=== PATIENT | female | born 1950 | race Caucasian/White ===

== ENCOUNTER 2023-03-11 07:02 | Inpatient (IN) ==
[2023-03-11] MEDS ORDERED: dexAMETHasone**PF** 10 MG/ML VIAL IV ONE (07:07)
[2023-03-11] MEDS ORDERED: ALBUT/IPRATROP 3MG/0.5MG NEB 3 ML VIAL NEB STA (07:07)
[2023-03-11] MEDS ORDERED: MAGNESIUM SULFATE / D5W 1 GM/100 ML BAG IV STA (07:08)
--- OUTSIDE RECORDS SUMMARY | 2023-03-11 07:09 | External Medical Summary ---
Author Name Unknown Address Unknown Organization [facility]:[address] [place] [address] Laboratory Report Ordering Provider Test Date Status LEANN SIMMONS 12/28/2022 10:05 Final Observation Date Value Abnormality Reference (Units ) Status Glucose 12/28/2022 16:19 82 70-110 (MG/DL) Final BUN 12/28/2022 16:19 17 6-25 (MG/DL) Final Creatinine 12/28/2022 16:19 0.8 0.5-1.2 (MG/DL) Final Sodium 12/28/2022 16:19 144 135-145 (MEQ/L) Final Potassium 12/28/2022 16:19 4.2 3.5-5.0 (MEQ/L) Final Cl 12/28/2022 16:19 104 95-107 (MEQ/L) Final CO2 12/28/2022 16:19 32 Above high normal 24-31 (MEQ/L) Final Alk Phos 12/28/2022 16:19 82 43-122 (IU/L) Final ALT (Alanine aminotransferase) 12/28/2022 16:19 13 10-40 (IU/L) Final AST (Aspartate aminotransferase) 12/28/2022 16:19 17 3-42 (IU/L) Final Bilirubin, Total 12/28/2022 16:19 0.4 0.1-1.3 (MG/DL) Final Calcium 12/28/2022 16:19 9.9 8.5-10.6 (MG/DL) Final Protein 12/28/2022 16:19 6.6 5.8-8.0 (G/DL) Final Albumin 12/28/2022 16:19 4.2 3.0-5.2 (G/DL) Final GLOBULIN 12/28/2022 16:19 2.4 2.0-3.4 (G/DL) Final GFR (estimated) 12/28/2022 16:19 75 >60 (ML/MIN/1.73 SQM) Final Performing Location [facility] [address] [place] [address]
--- OUTSIDE RECORDS SUMMARY | 2023-03-11 07:09 | External Medical Summary ---
Author Name Unknown Address Unknown Organization [facility]:[address] [place] [address] Laboratory Report Ordering Provider Test Date Status LEANN SIMMONS 12/28/2022 10:05 Final Observation Date Value Abnormality Reference (Units ) Status Cholesterol 12/28/2022 16:19 185 0-200 (MG/D L) Final CHOLESTEROL
Less than 2 00mg/dl Low risk
201-239 mg/dl Borderline risk
Equal to or greater 240mg/dl High risk Triglyceride 12/28/2022 16:19 116 0-150 (MG/ DL) Final TRIGLYCERIDES
Less than 150mg/dl Normal
150-199mg/dl Borderline
200-499mg/dl High
Greater than 500mg/dl Very High HDL 12/28/2022 16:19 62 SEE COMMENT ( MG/DL) Final HDL
<40mg/dl Elevated R isk
41-59mg/dl Risk
>=60mg/dl Least Risk Cholesterol in LDL [Mass/vol ume] in Serum or Plasma 12/28/2022 16:19 114 0-130 (MG/DL) Final LDL
<100mg/dl Optimal<b r/> 100-129mg/dl Near Optimal
130-159mg/dl Borderline High
160-189mg/dl High
>=190 Very High Cholesterol in VLDL [Mass/vo lume] in Serum or Plasma 12/28/2022 16:19 23.2 SEE COMMENT (MG/DL ) Final VLDL
Less than 30mg/dl Normal HDL 12/28/2022 16:19 3.0 SEE COMMENT ( RATIO) Final CHOL/HDL
<4.0 Optimal<b r/> 4.0-5.0 Borderline
>6.0 High Risk NON-HDL 12/28/2022 16:19 123 SEE COMMENT ( MG/DL) Final NON-HDL
30mg/dl higher than LDL Target Performing Location [facility] [address] [place] [address]
--- OUTSIDE RECORDS SUMMARY | 2023-03-11 07:09 | External Medical Summary ---
Author Name Unknown Address Unknown Organization K1C:[facility] [address] [place] [id number] Laboratory Report Ordering Provider Test Date Status BRENDA SIMMONSO 12/28/2022 10:05 Final Observation Date Value Abnormality Reference (Units ) Status TSH 12/28/2022 16:02 1.71 0.50-6.00 (uI U/mL) Final Performing Location [facility] [address] [place] [id number]
--- OUTSIDE RECORDS SUMMARY | 2023-03-11 07:09 | External Medical Summary ---
Author Name Unknown Address Unknown Organization [facility]:[address] [place] [address] Laboratory Report Ordering Provider Test Date Status LEANN SIMMONS 12/28/2022 10:05 Final Observation Date Value Abnormality Reference (Units ) Status WBC 12/28/2022 15:10 6.2 3.1-9.2 (10^3 /M3) Final RBC 12/28/2022 15:10 4.59 3.70-5.50 (10 ^6/M3) Final Hemoglobin 12/28/2022 15:10 14.1 11.5-16.1 (G R/DL) Final HCT 12/28/2022 15:10 42.8 34.5-47.8 (%) Final MCV 12/28/2022 15:10 93.4 82.6-95.8 (CU MICR) Final MCH 12/28/2022 15:10 30.8 27.9-32.9 (PI CO GR) Final MCHC 12/28/2022 15:10 33.0 32.6-35.4 (%) Final RDW 12/28/2022 15:10 13.3 11.4-14.6 (%) Final PLT 12/28/2022 15:10 236 140-350 (10^3 /M3) Final MPV 12/28/2022 15:10 8.4 7.0-10.6 (CU MICR) Final Neutrophils/100 leukocytes in Blood 12/28/2022 15:10 59.9 40.0-75.0 (%) Fin al Lymphs % 12/28/2022 15:10 27.0 17.0-45.0 (%) Final Monos 12/28/2022 15:10 8.1 1.0-11.0 (%) Final %EOS 12/28/2022 15:10 4.5 0.0-6.0 (%) F inal Basos 12/28/2022 15:10 0.5 0.0-2.0 (%) F inal Neutrophils [#/volume] in [place] by Manual count 12/28/2022 15:10 3.7 1.5-8.0 (10^ 3/M3) Final Lymphs % 12/28/2022 15:10 1.7 0.8-3.2 (10^3 /M3) Final Monos 12/28/2022 15:10 0.5 0.0-0.8 (10^3 /M3) Final #EOS 12/28/2022 15:10 0.3 0.0-0.4 (10^3 /m3) Final #BASO 12/28/2022 15:10 0.0 0.0-0.2 (10^3 /m3) Final Performing Location [facility] [address] [place] [address]
--- OUTSIDE RECORDS SUMMARY | 2023-03-11 07:09 | External Medical Summary ---
Author Name Unknown Address Unknown Organization K1C:[facility] [address] [place] [id number] Laboratory Report Ordering Provider Test Date Status null,[facility] 11/03/2022 12:34 Final Observation Date Value Abnormality Reference (Units ) Status Creatinine 11/04/2022 13:04 1.1 0.5-1.2 (MG/ DL) Final GFR (estimated) 11/04/2022 13:04 52 Below low normal >60 (ML/MIN/1.73 SQM) Final Performing Location [facility] [address] [place] [id number]
--- NOTE | 2023-03-11 07:12 | Emergency Department Note ---
Impression & Plan COPD exacerbation, Tachycardia, Elevated troponin, COVID-19 ED Provider Note Name: BRITT ARREOLA Age: 73 Sex: Female Arrives Via: Ambulance Informant: Patient and EMS ED Provider: Merrill Rubio MD Chief Complaint: Shortness of breath Impression: As per impression above Medical Decision Makin-year-old female with extensive past medical history though not on medications currently as she is homeless having just moved back to the area. Worsening illness over the last 2 weeks though significantly worse over the last day. Patient is significantly short of breath she has diffuse wheezing and tight lung sounds. She is quite tachycardic she is quite dehydrated appearing. Septic workup initiated. Shortly after arrival patient flipped to an SVT. Heart rate in the 180s. She was given adenosine with return to heart rate in the 130s and 40s. Fluid resuscitated while here in the ER and had a few episodes of tachyarrhythmia that would bounce back down. Did end up receiving 2 rounds of IV Lopressor and eventually heart rate settled in the 90s and was very much sinus. At times it almost appeared that patient was going between SVT, a flutter and unclear arrhythmia though does not have any evidence of wide-complex tachycardia. Chest x-ray does not show clear infiltrate. Laboratory workup is relatively reassuring other than she does have an elevated troponin. At this point I do not feel she is truly septic. She had been given some empiric IV antibiotics in the setting of tachycardia shortness of breath however with COVID, back positive I feel its most likely this is a COPD exacerbation secondary to COVID which also set off a tachyarrhythmia. This is likely the cause of a bit of a troponin leak. She is not having any chest pain or hypotension I think PE or ACS is unlikely at this time. Will need further rule out of troponin but more importantly her breathing cardiac will need further workup and evaluation/management. Patient is comfortable with staying in the hospital. Hospitalist and to evaluate further. I will note that initially plan was to give a DuoNeb however she became so tachycardic plan was to hold off and resuscitate a bit while getting heart rate under control before proceeding with neb. Reviewed this with hospitalist who is on board. Triage/Nursing Notes reviewed by Me Differential:Reactive airway disease, pneumonia, pneumothorax, COPD, CHF, infections, cardiac ischemia, pulmonary embolism, musculoskeletal, gastrointestinal, as well as other pathologies. Vital Signs: reviewed and remarkable for no significant abnormalities Interventions: 2 L normal saline bolus IV, Zosyn IV, Decadron IV, adenosine 6 mg IV, Lopressor 5 mg IV x 2 Labs:ED labs Reviewed by me and remarkable for positive COVID, elevated troponin, mildly elevated white blood cell count, elevated CRP Imagin view chest x-ray bilateral mild viral pattern no lobar infiltrate appreciated EKG:As per my interpretation. Indication tachycardia. Sinus tach 133 bpm, qtc 422. No ectopy nor overt ischemia. No previous for comparison EKG 2: Per My Interpretation: Indication rate change: SVT 183 bpm, qtc 425. No Ectopy. No Ischemia. Compared to EKG earlier in day, now in SVT Cardiac/Tele Monitoring: Cardiac Monitoring: An Order was placed for continuous cardiac monitoring. The monitor shows a rate of 130 with a sinus tach rhythm. Consults:Dr Matilde ANTONIO Hospitalist Social Determinants of Health: Homeless Plan: Disposition:Hospitalization. Condition: Fair History of Present Illness: 73-year-old female arrives for evaluation of illness. Patient states for the last 2 weeks gradually worsening cough congestion fatigue. States rapidly worsening shortness of breath over the last few days. This morning she said she just could not catch her breath anymore. Associated with wheezing fatigue tachycardia. States she almost passed out. Notes diffuse chest tightness without specific chest pain. No leg swelling, calf pain. Admits she has not been eating or drinking as well. Currently living at a homeless [facility] as she recently moved to the area to avoid further family interactions in [facility]. Patient denies alcohol, drug, tobacco use at this time. Denies any inhalation of anything other than her medications. She was on several breathing treatment medicines though as she does not currently have a doctor she is run out of some of them. Due to worsening shortness of breath EMS was called. On arrival EMS noted patient with O2 sats in the 80s severe shortness of breath and tachycardic. She was given 500 mL IV normal saline bolus and route. She was given adenosine 6 mg IV with heart rate going from 160s to 110s then back up to 140s. Past Medical History:COPD, asthma, hypertension, bladder cancer, arthritis, previous left sided breast lumpectomy Home Medications:notes multiple breathing meds that she is run out of Allergies:denies allergies Vitals:Blood Pressure: 142/77, Pulse 148, RR 22, T 37.0C, O2 86% on RA Physical Exam: GENERAL: Patient is unwell appearing and in moderate distress. RESPIRATORY: Severe dyspnea/tachypnea. Mild expiratory wheeze and some crackles at bases. CARDIOVASCULAR: Tachycardia.No murmur appreciated. GASTROINTESTINAL: Abdomen soft, non-tender, no peritonitis. EXTREMITIES: Normal motion all extremities, no cyanosis, no edema. NEUROLOGIC: Alert and oriented. No focal neurologic deficits appreciated SKIN: No rash, no jaundice, no diaphoresis. PSYCH: Appropriate GCS: 15 ED Course: Times/Reassessments: Patient flipping in and out of SVT & a-fib/flutter eventually settling in the upper 90s sinus following fluids Lopressor. Critical Care: I have personally spent 35 minutes of critical care time in the direct management of this patient. Tachyarrhythmia requiring adenosine & lopressor with respiratory failure due to COPD and Covid. This was a life/limb threatening event. This 35 minutes is in excess of all separately billable procedures. Merrill Rubio MD Past Med/Surg History Surgical History (Updated 06/14/21 @ 14:08 by JULIO Malhotra) History of thumb surgery H/O wrist surgery History of hysterectomy Hx of appendectomy Family History (Updated 06/14/21 @ 14:09 by JULIO Malhotra) Mother Cancer Father Cancer Sister Cancer Brother Cancer Social History (Updated 06/14/21 @ 14:09 by JULIO Malhotra) Smoking Status: Former smoker Hx Alcohol Use: No Hx Substance Use: No Preferred Language: Honduran marital status: / current occupational status: disabled Feels Safe at Home: Yes Allergies Allergies Allergy/AdvReac Type Severity Reaction Status Date / Time Penicillins Allergy Unknown was always Unverified 03/11/23 09:23 told not to take it acetaminophen [From Vicodin] AdvReac Intermediate severe Unverified 03/11/23 09:23 stomach pains hydrocodone [From Vicodin] AdvReac Intermediate severe Unverified 03/11/23 09:23 stomach pains ptd Allergy Mild Rash Uncoded 03/11/23 09:23 Home Meds Home Medications Medication Instructions Recorded Confirmed bupropion HCl 300 mg 24 hr tablet, 300 mg PO DAILY 03/11/23 03/11/23 extended release buspirone 15 mg tablet 15 mg PO TID 03/11/23 03/11/23 duloxetine 60 mg capsule,delayed 60 mg PO DAILY 03/11/23 03/11/23 release esomeprazole magnesium 40 mg 40 mg PO DAILY 03/11/23 03/11/23 capsule,delayed release gabapentin 400 mg capsule 400 mg PO TID 03/11/23 03/11/23 hydrochlorothiazide 12.5 mg capsule 12.5 mg PO DAILY 03/11/23 03/11/23 lithium carbonate 300 mg capsule 300 mg PO DAILY 03/11/23 03/11/23 meloxicam 15 mg tablet 15 mg PO DAILY 03/11/23 03/11/23 metoprolol succinate 50 mg 50 mg PO DAILY 03/11/23 03/11/23 tablet,extended release 24 hr oxybutynin chloride 5 mg tablet 5 mg PO BID 03/11/23 03/11/23 pantoprazole 40 mg tablet,delayed 40 mg PO DAILY 03/11/23 03/11/23 release ropinirole 1 mg tablet 1 mg PO DAILY 03/11/23 03/11/23 umeclidinium 62.5 mcg/actuation See Rx Instructions .Route .COMPLEX 03/11/23 03/11/23 blister powder for inhalation (Incruse Ellipta) Results & Data (ED) Vital Signs Vital Signs - 24 hr 03/11/23 07:17 03/11/23 07:17 03/11/23 07:40 Temperature 37.4 C Temperature Source Oral Pulse Rate 140 H 183 H Pulse Rate from SpO2 Sensor Respiratory Rate 19 Blood Pressure 142/77 H Blood Pressure Mean 98 Pulse Oximetry 84 L 85 L Oxygen Delivery Method Room Air Nasal Cannula Oxygen Flow Rate 0 Sepsis Recent Fever Within 48 Hours No Sepsis New/Unexplained Change in Mental Status No Sepsis Action Taken by Nursing No Action Required Oxygen Flow Rate - Titration 2 Pulse Oximetry Post Tiitration 97 03/11/23 07:43 03/11/23 07:44 03/11/23 07:44 Temperature Temperature Source Pulse Rate 182 H 181 H Pulse Rate from SpO2 Sensor 183 H 181 H Respiratory Rate 15 14 Blood Pressure 93/75 L Blood Pressure Mean 82 Pulse Oximetry 97 98 Oxygen Delivery Method Nasal Cannula Nasal Cannula Oxygen Flow Rate 2 2 Sepsis Recent Fever Within 48 Hours Sepsis New/Unexplained Change in Mental Status Sepsis Action Taken by Nursing Oxygen Flow Rate - Titration Pulse Oximetry Post Tiitration 03/11/23 07:45 03/11/23 07:50 03/11/23 07:55 Temperature Temperature Source Pulse Rate 180 H 128 H Pulse Rate from SpO2 Sensor 178 H 127 H Respiratory Rate 15 18 Blood Pressure 116/64 Blood Pressure Mean 81 Pulse Oximetry 97 95 Oxygen Delivery Method Nasal Cannula Nasal Cannula Oxygen Flow Rate 2 2 Sepsis Recent Fever Within 48 Hours Sepsis New/Unexplained Change in Mental Status Sepsis Action Taken by Nursing Oxygen Flow Rate - Titration Pulse Oximetry Post Tiitration 03/11/23 07:55 03/11/23 08:00 03/11/23 08:00 Temperature Temperature Source Pulse Rate 123 H 123 H Pulse Rate from SpO2 Sensor 124 H 122 H Respiratory Rate 14 18 Blood Pressure 119/49 L Blood Pressure Mean 78 Pulse Oximetry 94 94 Oxygen Delivery Method Nasal Cannula Nasal Cannula Oxygen Flow Rate 2 2 Sepsis Recent Fever Within 48 Hours Sepsis New/Unexplained Change in Mental Status Sepsis Action Taken by Nursing Oxygen Flow Rate - Titration Pulse Oximetry Post Tiitration 03/11/23 08:05 03/11/23 08:10 03/11/23 08:15 Temperature Temperature Source Pulse Rate 124 H 124 H 120 H Pulse Rate from SpO2 Sensor 126 H 119 H Respiratory Rate 26 H 49 H 21 Blood Pressure Blood Pressure Mean Pulse Oximetry 97 93 Oxygen Delivery Method Oxygen Flow Rate Sepsis Recent Fever Within 48 Hours Sepsis New/Unexplained Change in Mental Status Sepsis Action Taken by Nursing Oxygen Flow Rate - Titration Pulse Oximetry Post Tiitration 03/11/23 08:20 03/11/23 08:22 03/11/23 08:25 Temperature Temperature Source Pulse Rate 120 H 121 H 120 H Pulse Rate from SpO2 Sensor 118 H 119 H Respiratory Rate 34 H 26 H Blood Pressure Blood Pressure Mean Pulse Oximetry 94 94 Oxygen Delivery Method Oxygen Flow Rate 2 2 Sepsis Recent Fever Within 48 Hours Sepsis New/Unexplained Change in Mental Status Sepsis Action Taken by Nursing Oxygen Flow Rate - Titration Pulse Oximetry Post Tiitration 03/11/23 08:30 03/11/23 08:30 03/11/23 08:35 Temperature Temperature Source Pulse Rate 129 H 121 H Pulse Rate from SpO2 Sensor 119 H 121 H Respiratory Rate 22 26 H Blood Pressure 117/68 Blood Pressure Mean 76 Pulse Oximetry 93 94 Oxygen Delivery Method Oxygen Flow Rate 2 2 Sepsis Recent Fever Within 48 Hours Sepsis New/Unexplained Change in Mental Status Sepsis Action Taken by Nursing Oxygen Flow Rate - Titration Pulse Oximetry Post Tiitration 03/11/23 08:40 03/11/23 08:40 03/11/23 08:43 Temperature Temperature Source Pulse Rate 179 H 192 H 129 H Pulse Rate from SpO2 Sensor 189 H Respiratory Rate 26 H Blood Pressure Blood Pressure Mean Pulse Oximetry 92 Oxygen Delivery Method Nasal Cannula Oxygen Flow Rate 2 Sepsis Recent Fever Within 48 Hours Sepsis New/Unexplained Change in Mental Status Sepsis Action Taken by Nursing Oxygen Flow Rate - Titration Pulse Oximetry Post Tiitration 03/11/23 08:45 03/11/23 08:50 03/11/23 08:55 Temperature Temperature Source Pulse Rate 121 H 121 H 123 H Pulse Rate from SpO2 Sensor 121 H 122 H 123 H Respiratory Rate 23 30 H 22 Blood Pressure Blood Pressure Mean Pulse Oximetry 93 92 94 Oxygen Delivery Method Nasal Cannula Oxygen Flow Rate 2 Sepsis Recent Fever Within 48 Hours Sepsis New/Unexplained Change in Mental Status Sepsis Action Taken by Nursing Oxygen Flow Rate - Titration Pulse Oximetry Post Tiitration 03/11/23 09:00 03/11/23 09:00 03/11/23 09:05 Temperature Temperature Source Pulse Rate 174 H 133 H Pulse Rate from SpO2 Sensor 174 H 132 H Respiratory Rate 20 29 H Blood Pressure 129/76 Blood Pressure Mean 84 Pulse Oximetry 95 91 Oxygen Delivery Method Oxygen Flow Rate Sepsis Recent Fever Within 48 Hours Sepsis New/Unexplained Change in Mental Status Sepsis Action Taken by Nursing Oxygen Flow Rate - Titration Pulse Oximetry Post Tiitration 03/11/23 09:15 03/11/23 09:20 03/11/23 09:25 Temperature Temperature Source Pulse Rate 153 H 152 H 150 H Pulse Rate from SpO2 Sensor 158 H 151 H 150 H Respiratory Rate 27 H 23 23 Blood Pressure Blood Pressure Mean Pulse Oximetry 93 93 94 Oxygen Delivery Method Oxygen Flow Rate Sepsis Recent Fever Within 48 Hours Sepsis New/Unexplained Change in Mental Status Sepsis Action Taken by Nursing Oxygen Flow Rate - Titration Pulse Oximetry Post Tiitration 03/11/23 09:30 03/11/23 09:30 03/11/23 09:35 Temperature Temperature Source Pulse Rate 154 H 102 H Pulse Rate from SpO2 Sensor 152 H 102 H Respiratory Rate 29 H 23 Blood Pressure 110/87 Blood Pressure Mean 98 Pulse Oximetry 93 93 Oxygen Delivery Method Oxygen Flow Rate 2 Sepsis Recent Fever Within 48 Hours Sepsis New/Unexplained Change in Mental Status Sepsis Action Taken by Nursing Oxygen Flow Rate - Titration Pulse Oximetry Post Tiitration 03/11/23 09:40 03/11/23 09:45 03/11/23 09:50 Temperature Temperature Source Pulse Rate 146 H 104 H 106 H Pulse Rate from SpO2 Sensor 147 H 103 H 101 H Respiratory Rate 35 H 28 H 35 H Blood Pressure Blood Pressure Mean Pulse Oximetry 92 90 93 Oxygen Delivery Method Oxygen Flow Rate 2 2 2 Sepsis Recent Fever Within 48 Hours Sepsis New/Unexplained Change in Mental Status Sepsis Action Taken by Nursing Oxygen Flow Rate - Titration Pulse Oximetry Post Tiitration 03/11/23 09:55 03/11/23 10:00 03/11/23 10:00 Temperature Temperature Source Pulse Rate 116 H 94 H Pulse Rate from SpO2 Sensor 98 H 99 H Respiratory Rate 28 H 18 Blood Pressure 95/72 L Blood Pressure Mean 76 Pulse Oximetry 94 95 Oxygen Delivery Method Oxygen Flow Rate 2 2 Sepsis Recent Fever Within 48 Hours Sepsis New/Unexplained Change in Mental Status Sepsis Action Taken by Nursing Oxygen Flow Rate - Titration Pulse Oximetry Post Tiitration 03/11/23 10:05 03/11/23 10:10 03/11/23 10:21 Temperature Temperature Source Pulse Rate 100 H 102 H 106 H Pulse Rate from SpO2 Sensor 99 H 102 H Respiratory Rate 27 H 26 H 22 Blood Pressure Blood Pressure Mean Pulse Oximetry 92 91 Oxygen Delivery Method Oxygen Flow Rate 2 2 Sepsis Recent Fever Within 48 Hours Sepsis New/Unexplained Change in Mental Status Sepsis Action Taken by Nursing Oxygen Flow Rate - Titration Pulse Oximetry Post Tiitration Laboratory Data 03/11/23 07:39 03/11/23 07:39 Lab Results 03/11/23 03/11/23 03/11/23 Range/Units 07:39 07:55 09:15 WBC 15.42 H (4.8-10.8) K/ul RBC 4.19 L (4.20-5.40) M/uL Hgb 12.4 (12.0-16.0) g/dl Hct 38.9 (37.0-47.0) % MCV 92.8 (80.0-100.0) fL MCH 29.6 (25.0-34.0) pg MCHC 31.9 L (32.0-36.0) g/dL RDW Std Deviation 43.8 (36.4-46.3) fL RDW Coeff of Manny 12.9 (11.5-14.5) % Plt Count 269 (130-400) K/uL MPV 10.0 (9.4-12.4) fL Immature Gran % (Auto) 1.2 % Neut % (Auto) 83.5 % Lymph % (Auto) 5.1 % [place] % (Auto) 9.4 % Eos % (Auto) 0.5 % Baso % (Auto) 0.3 % Neut # (Auto) 12.87 H (1.40-6.50) K/uL Lymph # (Auto) 0.79 L (1.20-3.40) K/uL [place] # (Auto) 1.45 H (0.11-0.59) K/uL Eos # (Auto) 0.08 (0.00-0.50) K/uL Baso # (Auto) 0.05 (0.00-0.20) K/uL Immature Gran # (Auto) 0.18 (0.01-0.20) K/uL VBG pH 7.37 (7.36-7.41) VBG pCO2 46 (38-50) mmHg VBG pO2 46 mmHg VBG HCO3 27 mmol/L VBG O2 Saturation 76.5 % VBG Base Excess 0.8 mEq/L Sodium 138 (136-145) mmol/L Potassium 3.8 (3.5-5.1) mmol/L Chloride 103 (98-107) mmol/L Carbon Dioxide 27 (21-32) mmol/L Anion Gap 8 (3-11) BUN 14 (6-23) mg/dl Creatinine 0.66 (0.6-1.2) mg/dl Est Cr Clr Drug Dosing 73.4 ml/min Est GFR ( Amer) 103.0 ml/min Est GFR (Non-Af Amer) 88.9 ml/min BUN/Creatinine Ratio 21.2 H (10-20) Glucose 137 H (70-99(Fasting)) mg/dl Lactate 1.2 (0.4-2.0) mmol/L Calcium 8.1 L (8.6-10.3) mg/dl Magnesium 1.7 (1.7-2.4) mg/dl Total Bilirubin 0.5 (0.2-1.0) mg/dl Direct Bilirubin 0.1 (0-0.2) mg/dl AST 23 (13-39) U/L ALT 18 (7-52) U/L Alkaline Phosphatase 81 (34-104) U/L Troponin I High Sens 46.0 H (0-14) pg/ml C-Reactive Protein 21.84 H (0-0.5) mg/dl Total Protein 6.2 (6.0-8.3) gm/dl Albumin 3.0 L (3.4-5.0) gm/dl Procalcitonin 0.26 (0-0.5) ng/ml Urine Color Yellow Urine Appearance Clear (Clear) Urine pH 6.0 (4.5-7.5) Ur Specific [place] 1.007 (1.000-1.030) Urine Protein 1+ H (Negative) Urine Glucose (UA) Negative (Negative) Urine Ketones Trace H (Negative) Urine Blood Trace H (Negative) Urine Nitrite Negative (Negative) Urine Bilirubin Negative (Negative) Urine Urobilinogen Negative (Negative) Ur Leukocyte Esterase Negative (Negative) Urine WBC (Auto) 1-5 (0-5) /hpf Urine RBC (Auto) 0-4 (0-4) /hpf U Hyaline Cast (Auto) 1-5 (0-5) /lpf U Epithel Cells (Auto) >30 H (0-5) /lpf Urine Bacteria (Auto) 1+ H (Negative) Adenovirus (PCR) Not Detected (NotDetected) B. pertussis DNA (PCR) Not Detected (NotDetected) B.parapertussis DNA PCR Not Detected (NotDetected) C. pneumoniae DNA (PCR) Not Detected (NotDetected) Coronavirus OC43 (PCR) Not Detected (NotDetected) Coronavirus HKU1 (PCR) Not Detected (NotDetected) Coronavirus 229E (PCR) Not Detected (NotDetected) SARS-CoV-2 (PCR) DETECTED A* (NotDetected) Coronavirus NL63 (PCR) Not Detected (NotDetected) Human Metapneumovir PCR Not Detected (NotDetected) Influenza Type A (PCR) Not Detected (NotDetected) Influenza Type B (PCR) Not Detected (NotDetected) M. pneumoniae (PCR) Not Detected (NotDetected) Parainfluenza 1 (PCR) Not Detected (NotDetected) Parainfluenza 2 (PCR) Not Detected (NotDetected) Parainfluenza 3 (PCR) Not Detected (NotDetected) Parainfluenza 4 (PCR) Not Detected (NotDetected) RSV (PCR) Not Detected (NotDetected) Entero/Rhino (PCR) Not Detected (NotDetected) Administered Medications Lactated Ringer's (Lr) 1,000 mls @ 80 mls/hr IV .[id number] [facility] Stop: 04/10/23 12:57 Last Admin: 03/11/23 13:45 Dose: 80 mls/hr Documented By: ANGELIQUE Discontinued Medications Adenosine (Adenosine Iv Soln 3 Mg/Ml 2 Ml Vial) 6 mg IV NOW STA Stop: 03/11/23 07:42 Last Admin: 03/11/23 07:47 Dose: 6 mg Documented By: ANGELIQUE Adenosine (Adenosine Iv Soln 3 Mg/Ml 2 Ml Vial) 6 mg IV NOW STA Stop: 03/11/23 08:40 Last Admin: 03/11/23 11:09 Dose: Not Given Documented By: ANGELIQUE Albuterol (Albut/Ipratrop 3mg/0.5mg Neb 3 Ml Vial) 3 ml NEB NOW STA; Protocol Stop: 03/11/23 07:08 Last Admin: 03/11/23 09:15 Dose: Not Given Documented By: ANGELIQUE Dexamethasone Sodium Phosphate (DexamethasonePf 10 Mg/Ml Vial) 10 mg IV NOW ONE Stop: 03/11/23 07:08 Last Admin: 03/11/23 07:51 Dose: 10 mg Documented By: ANGELIQUE Sodium Chloride (Nss) 1,000 mls @ 999 mls/hr IV .Q1H1M BETH Stop: 03/11/23 08:15 Last Infusion: 03/11/23 08:45 Dose: Infused Documented By: Admin: 03/11/23 07:44 Dose: 999 mls/hr Documented By: ANGELIQUE Magnesium Sulfate/Dextrose (Magnesium Sulfate / D5w) 1 gm in 100 mls @ 100 mls/hr IV NOW STA Stop: 03/11/23 08:07 Last Infusion: 03/11/23 08:54 Dose: Infused Documented By: Admin: 03/11/23 07:54 Dose: 100 mls/hr Documented By: ANGELIQUE Sodium Chloride (Nss) 1,000 mls @ 999 mls/hr IV .Q1H1M ONE Stop: 03/11/23 08:41 Last Infusion: 03/11/23 08:52 Dose: Infused Documented By: Admin: 03/11/23 07:51 Dose: 999 mls/hr Documented By: ANGELIQUE Piperacillin Sod/Tazobactam Sod (Zosyn) 4.5 gm in 100 mls @ 200 mls/hr IV NOW ONE Stop: 03/11/23 08:37 Last Infusion: 03/11/23 09:43 Dose: Infused Documented By: Admin: 03/11/23 09:13 Dose: 200 mls/hr Documented By: ANGELIQUE Ipratropium [place] (Ipratropium [place] Neb Soln 0.02% 2.5 Ml Vial) 0.5 mg NEB QID BETH Stop: 04/10/23 12:59 Last Admin: 03/11/23 13:07 Dose: Not Given Documented By: FILIPE Metoprolol Tartrate (Metoprolol Tartrate 1 Mg/Ml Vial) 5 mg IV NOW STA Stop: 03/11/23 08:45 Last Admin: 03/11/23 09:06 Dose: 5 mg Documented By: ANGELIQUE Metoprolol Tartrate (Metoprolol Tartrate 1 Mg/Ml Vial) 5 mg IV NOW STA Stop: 03/11/23 09:32 Last Admin: 03/11/23 09:32 Dose: 5 mg Documented By: ANGELIQUE Imaging Data Radiologist's Impression: Chest X-Ray 03/11/23 07:07 XR chest 1V portable HISTORY: Sepsis COMPARISON: CT lung screening 02/01/2021. FINDINGS: No pneumothorax. No pleural effusions. The heart is normal in size. No focal lung consolidations to suggest a pneumonia. No evidence for pulmonary edema. Mild emphysema is noted. Mild interstitial thickening at the lung bases. This may represent vascular crowding from the emphysema. No acute fractures identified. IMPRESSION: Mild interstitial thickening at the lung bases which may be due to vascular crowding from the emphysema. Otherwise, no focal lung consolidations to suggest a pneumonia. ACT 112: Negative or not required by law. Electronically signed by: Uzair Douglas M.D. 03/11/2023 7:54 AM Discharge Plan Visit Data Chief Complaint: Shortness of Breath/Dyspnea Stated Complaint: SOB, TACHYCARDIA, COUGH ED Provider: Merrill Rubio Discharge Problem: COPD exacerbation, Tachycardia, Elevated troponin, COVID-19 Discharge Instructions Interventions: ED Discharge Assessment Last Done: 03/11/23 12:58
[2023-03-11] MEDS ORDERED: SODIUM CHLORIDE 0.9% 1,000 ML IV SCH (07:15)
[2023-03-11] MEDS ORDERED: ADENOSINE IV SOLN 3 MG/ML 2 ML VIAL IV STA ×2 (07:41→08:39)
[2023-03-11] MEDS ORDERED: SODIUM CHLORIDE 0.9% 1,000 ML IV ONE (07:41)
[2023-03-11 07:54] LABS: Base Excess VBG 0.8 mEq/L; HCO3 VBG 27 mmol/L; Oxygen Saturation VBG 76.5 %; PCO2 VBG 46 mmHg (38-50); PO2 VBG 46 mmHg; pH VBG 7.37 (7.36-7.41)
--- NOTE | 2023-03-11 07:55 | XRay Report ---
XR chest 1V portable HISTORY: Sepsis COMPARISON: CT lung screening 02/01/2021. FINDINGS: No pneumothorax. No pleural effusions. The heart is normal in size. No focal lung consolida tions to suggest a pneumonia. No evidence for pulmonary edema. Mild emphysema is noted. Mild intersti tial thickening at the lung bases. This may represent vascular crowding from the emphysema. No acute fractures identified. IMPRESSION: Mild interstitial thickening at the lung bases which may be due to vascular crowding from the emphyse ma. Otherwise, no focal lung consolidations to suggest a pneumonia. ACT 112: Negative or not required by law. Electronically signed by: Uzair Douglas M.D. 03/11/2023 7:54 AM
[2023-03-11 08:02] LABS: Basophils # (auto) 0.05 K/uL (0.00-0.20); Basophils % (auto) 0.3 %; Eosinophils # (auto) 0.08 K/uL (0.00-0.50); Eosinophils % (auto) 0.5 %; Hematocrit (blood only) 38.9 % (37.0-47.0); Hemoglobin 12.4 g/dl (12.0-16.0); Immature Granulocytes # (auto) 0.18 K/uL (0.01-0.20); Immature Granulocytes % (auto) 1.2 %; Lymphocytes # (auto) 0.79 K/uL (1.20-3.40); Lymphocytes % (auto) 5.1 %; Mean Corpuscular Hemoglobin 29.6 pg (25.0-34.0); Mean Corpuscular Hgb Conc 31.9 g/dL (32.0-36.0); Mean Corpuscular Volume 92.8 fL (80.0-100.0); Monocytes # (auto) 1.45 K/uL (0.11-0.59); Monocytes % (auto) 9.4 %; Neutrophils # (auto) 12.87 K/uL (1.40-6.50); Neutrophils % (auto) 83.5 %; Platelet Count 269 K/uL (130-400); RDW Coefficient of Variation 12.9 % (11.5-14.5); RDW Standard Deviation 43.8 fL (36.4-46.3); Red Blood Count 4.19 M/uL (4.20-5.40); White Blood Count 15.42 K/ul (4.8-10.8)
[2023-03-11] MEDS ORDERED: PIPERACILLIN/TAZOBACTAM 4.5 GM/100 ML BAG IV ONE (08:08)
[2023-03-11 08:18] LABS: BUN Creatinine Ratio 21.2 (10-20); Bilirubin Direct 0.1 mg/dl (0-0.2); Bilirubin,Total 0.5 mg/dl (0.2-1.0); Calcium 8.1 mg/dl (8.6-10.3); Creatinine Clr Calc Pharmacy 73.4 ml/min; Est GFR (Non-African American) 88.9 ml/min; Magnesium 1.7 mg/dl (1.7-2.4); Potassium 3.8 mmol/L (3.5-5.1); Total Protein 6.2 gm/dl (6.0-8.3)
[2023-03-11] MEDS ORDERED: METOPROLOL TARTRATE 1 MG/ML VIAL IV STA ×2 (08:44→09:31)
[2023-03-11 08:55] LABS: Adenovirus PCR Not Detected (NotDetected); Bordetella parapertussis PCR Not Detected (NotDetected); Bordetella pertussis PCR Not Detected (NotDetected); Chlamydia pneumoniae PCR Not Detected (NotDetected); Coronavirus 229E PCR Not Detected (NotDetected); Coronavirus HKU1 PCR Not Detected (NotDetected); Coronavirus NL63 PCR Not Detected (NotDetected); Coronavirus OC43PCR Not Detected (NotDetected); Human Metapneumovirus PCR Not Detected (NotDetected); Influenza A PCR Not Detected (NotDetected); Influenza B PCR Not Detected (NotDetected); Mycoplasma pneumoniae PCR Not Detected (NotDetected); Parainfluenza Virus 1 PCR Not Detected (NotDetected); Parainfluenza Virus 2 PCR Not Detected (NotDetected); Parainfluenza Virus 3 PCR Not Detected (NotDetected); Parainfluenza Virus 4 PCR Not Detected (NotDetected); Respiratory Syncytial VirusPCR Not Detected (NotDetected); Rhinovirus/Enterovirus PCR Not Detected (NotDetected)
[2023-03-11 08:59] LABS: Coronavirus CoV-2 (COVID19)PCR DETECTED (NotDetected)
[2023-03-11 09:32] LABS: C Reactive Protein 21.84 mg/dl (0-0.5)
[2023-03-11 10:02] LABS: Appearance Urine Clear (Clear); Bacteria Urine Automated 1+ (Negative); Bilirubin Urine Negative (Negative); Blood Urine Trace (Negative); Color Urine Yellow; Epithelial Cell Urine Auto >30 /lpf (0-5); Glucose Urine UA Negative (Negative); Ketones Urine Trace (Negative); Leukocyte Esterase Urine Negative (Negative); Nitrite Urine Negative (Negative); Protein Urine 1+ (Negative); RBC Urine Automated 0-4 /hpf (0-4); Specific Gravity Urine 1.007 (1.000-1.030); Urobilinogen Urine Negative (Negative)
--- NOTE | 2023-03-11 10:33 | History & Physical Report ---
Date of Service March 11, 2023 Assessment & Plan (1) COPD exacerbation: Plan: appears to have had covid sparking COPD exac (followed subsequently by reflexive "appropriate tachycardia" and then inappropriate arrythmias (see below)) -initial illness ~2wks ago, doubt that antivirals would be of any benefit -no clear evidence of pneumonia - obviously will need ongoing vigilance but procal 0.26, CXR clear, lung exam entirely consistent with COPD exac, hx c/w COPD exac not really c/w pneumonia - only factors of concern are risk (mod/severe COPD + covid setting up good potential for secondary infection and CRP being >20) - for now will utilize azithromycin for pulmonary anti- inflammatory effect but hold on further typical treatment until/unless evidence that it would be of benefit -continue steroids -atrovent nebs since tachycardia has also been a problem (once tachycardia more stable would change to duonebs depending on clinical progress) -home inhalers (symbicort/spiriva - although she notes that her insurance coverage changed, so at discharge will need to play the bureaucracy game to determine coverage now since insurance companies value pharmaceutical deals over patient continuity and care) (2) Tachycardia: Plan: seems most c/w SVT but could be flutter 2:1 --> however response to adenosine and then response leading to sinus ~100 the whole time i'm with her / discreetly appearing sinus on my review of most of her EKGs makes me think this is SVT not flutter -for now rate is good; have prn lopresor ordered; can re-utilize adenosine if needed -cardiology consult to (a) help sort out actual rhythm and (b) assuming it is SVT likely move towards ablation as appropriate -echocardiogram (3) DVT prophylaxis: Plan: lovenox Plan DNR/DNI, admit to [facility] hospitalists moved back to [facility] - was previously established with dr ross / [facility] - will need to re-set up PCP History of Present Illness Chief Complaint: SOB, heart racing Primary Care Provider: Adán Ross MD patient is a very pleasant 73-year-old female who notes that she first got sick about 2 weeks ago. At that time it sounds like she had fevers felt flushed, generally felt unwell and felt short of breathfelt like she was starting to have a COPD exacerbation from a viral infection. This kept going 4 days, it sounds like she just was not really quite sick enough to feel that she needed to come to the hospital but was definitely not well, had just moved back to the area and had not yet reestablished with her PCP, and mostly seem to be trying to ride it out. She did have some shaking chills from day-to-day but has not had any since maybe a day or so. In that respect, she feels like while the breathing is still bad the constitutional symptoms of infection seem to be improving. Cough with yellowish mucus that is new/different for her over that time period as well. What really got her attention to bring her to the hospital was partly because her presumed COPD exacerbation was not getting better, but also because in the last day or so she started to really feel heart racing symptoms. She maybe felt like her heart was going a little bit fast from time to time while she was sick, but she is now had some episodes of really pounding where she feels it in her neck extremely hard. On revisit several hours after initial admission, she had not had any further heart racing/pounding episodes, her breathing still felt bad, but she felt more stable than before. Allergies Allergy/AdvReac Type Severity Reaction Status Date / Time Penicillins Allergy Unknown was always Verified 03/11/23 17:59 told not to take it acetaminophen [From Vicodin] AdvReac Intermediate severe Verified 03/11/23 17:59 stomach pains hydrocodone [From Vicodin] AdvReac Intermediate severe Verified 03/11/23 17:59 stomach pains ptd Allergy Mild Rash Uncoded 03/11/23 09:23 Home Medications Medication Instructions Recorded Confirmed Type bupropion HCl 300 mg 24 hr tablet, 300 mg PO DAILY 03/11/23 03/11/23 History extended release buspirone 15 mg tablet 15 mg PO TID 03/11/23 03/11/23 History duloxetine 60 mg capsule,delayed 60 mg PO DAILY 03/11/23 03/11/23 History release esomeprazole magnesium 40 mg 40 mg PO DAILY 03/11/23 03/11/23 History capsule,delayed release gabapentin 400 mg capsule 400 mg PO TID 03/11/23 03/11/23 History hydrochlorothiazide 12.5 mg capsule 12.5 mg PO DAILY 03/11/23 03/11/23 History lithium carbonate 300 mg capsule 300 mg PO DAILY 03/11/23 03/11/23 History meloxicam 15 mg tablet 15 mg PO DAILY 03/11/23 03/11/23 History metoprolol succinate 50 mg 50 mg PO DAILY 03/11/23 03/11/23 History tablet,extended release 24 hr oxybutynin chloride 5 mg tablet 5 mg PO BID 03/11/23 03/11/23 History pantoprazole 40 mg tablet,delayed 40 mg PO DAILY 03/11/23 03/11/23 History release ropinirole 1 mg tablet 1 mg PO DAILY 03/11/23 03/11/23 History umeclidinium 62.5 mcg/actuation See Rx Instructions .Route .COMPLEX 03/11/23 03/11/23 History blister powder for inhalation (Incruse Ellipta) Past Med/Surg History Surgical History History of thumb surgery H/O wrist surgery History of hysterectomy Hx of appendectomy Family History Mother Cancer Father Cancer Sister Cancer Brother Cancer Social History Smoking Status: Former smoker Smoking End Date: 2014; Tobacco Cessation Education Requested by Patient: No Hx Alcohol Use: Yes Alcohol type: beer Hx Substance Use: No Preferred Language: Slovenian Communication Ability: Effective Protocol Manager Required: No marital status: / Current Living Situation: Other Current Living Situation Comment: [facility] nursing home/long-term current occupational status: disabled Feels Safe at Home: Yes Physical Exam Physical Exam: In general she is awake and alert pleasant no distress. HEENT normocephalic atraumatic mucous membranes moist. Cardio is regular and appears to be sinus on the monitor about 100 beats a minute whenever I see her, on revisit appears to be sinus again 120 and then down to 100 (she jokes that it might be the movie she is watching). Lungs are markedly diminished throughout without rales rhonchi or wheezes good effort no accessory muscle use no conversational dyspnea, she is on 2 L and notes she is not normally on oxygen at home. Extremities show no sinus clubbing or edema no calf tenderness. Skin shows no rashes no pallor or icterus. Neuro without focal deficits. Results & Data Results & Data Vital Signs (Past 12 Hours) Vital Signs Temp Pulse Resp BP Pulse Ox O2 Del Method O2 Flow Rate 03/11/23 10:10 102 H 26 H 91 2 03/11/23 10:05 100 H 27 H 92 2 03/11/23 10:00 94 H 18 95 2 03/11/23 10:00 95/72 L 03/11/23 09:55 116 H 28 H 94 2 03/11/23 09:50 106 H 35 H 93 2 03/11/23 09:45 104 H 28 H 90 2 03/11/23 09:40 146 H 35 H 92 2 03/11/23 09:35 102 H 23 93 2 03/11/23 09:30 154 H 29 H 93 03/11/23 09:30 110/87 03/11/23 09:25 150 H 23 94 03/11/23 09:20 152 H 23 93 03/11/23 09:15 153 H 27 H 93 03/11/23 09:05 133 H 29 H 91 03/11/23 09:00 174 H 20 95 03/11/23 09:00 129/76 03/11/23 08:55 123 H 22 94 03/11/23 08:50 121 H 30 H 92 03/11/23 08:45 121 H 23 93 Nasal Cannula 2 03/11/23 08:43 129 H 03/11/23 08:40 192 H 26 H 92 Nasal Cannula 2 03/11/23 08:40 179 H 03/11/23 08:35 121 H 26 H 94 2 03/11/23 08:30 117/68 03/11/23 08:30 129 H 22 93 2 03/11/23 08:25 120 H 26 H 94 2 03/11/23 08:22 121 H 03/11/23 08:20 120 H 34 H 94 2 03/11/23 08:15 120 H 21 93 03/11/23 08:10 124 H 49 H 03/11/23 08:05 124 H 26 H 97 03/11/23 08:00 123 H 18 94 Nasal Cannula 2 03/11/23 08:00 119/49 L 03/11/23 07:55 123 H 14 94 Nasal Cannula 2 03/11/23 07:55 116/64 03/11/23 07:50 128 H 18 95 Nasal Cannula 2 03/11/23 07:45 180 H 15 97 Nasal Cannula 2 03/11/23 07:44 181 H 14 98 Nasal Cannula 2 03/11/23 07:44 93/75 L 03/11/23 07:43 182 H 15 97 Nasal Cannula 2 03/11/23 07:40 183 H 03/11/23 07:17 85 L Nasal Cannula 0 03/11/23 07:17 99.3 F 140 H 19 142/77 H 84 L Room Air Code Status & VTE Plan VTE Prophylaxis Plan VTE Prophylaxis will be ordered: Yes PG Care Time/CCT Total # of Minutes Spent Total Time Spent with Patient: Total time spent is greater than 50% in coordination of care (as documented) at patient's floor/unit and/or counseling patient: Coding Level of Care Code 57875 INT INP/OBS CARE 3/75MIN Diagnoses COPD exacerbation J44.1 Tachycardia R00.0 DVT prophylaxis Z29.9
[2023-03-11] MEDS ORDERED: ALUMINUM/MAGNESIUM SUSP 30 ML UDC PO PRN (12:58)
[2023-03-11] MEDS ORDERED: TIOTROPIUM BROMIDE 5 PUFF/90 MCG INH INH SCH (12:58)
[2023-03-11] MEDS ORDERED: ACETAMINOPHEN 325 MG TAB PO PRN (12:58)
[2023-03-11] MEDS ORDERED: ONDANSETRON INJ 2 MG/ML 2 ML VIAL IV PRN (12:58)
[2023-03-11] MEDS ORDERED: METOPROLOL TARTRATE 1 MG/ML VIAL IV PRN (12:58)
[2023-03-11] MEDS ORDERED: POLYETHYLENE (MIRALAX) 17 GM PACK PO PRN (12:58)
[2023-03-11] MEDS ORDERED: MAGNESIUM HYDROXIDE SUSP 30 ML UDC PO PRN (12:58)
[2023-03-11] MEDS ORDERED: IPRATROPIUM BROMIDE NEB SOLN 0.02% 0.5MG/2.5ML VIAL NEB SCH (13:00)
[2023-03-11] MEDS ORDERED: AZITHROMYCIN 500 MG in DEXTROSE 5% 250 ML IV ONE (13:30)
[2023-03-11] MEDS: LACTATED RINGER'S 1,000 ML IV SCH (13:45)
[2023-03-11] MEDS: IPRATROPIUM BROMIDE NEB SOLN 0.02% 0.5MG/2.5ML VIAL NEB SCH ×2 (14:57→19:42)
[2023-03-11] MEDS: UMECLIDINIUM BROMIDE 62.5MCG/BLISTER 7 PUFFS/INHALER INH SCH (17:22)
[2023-03-11] MEDS: busPIRone 15 MG TAB PO SCH ×2 (17:23→20:06)
[2023-03-11] MEDS: GABAPENTIN 400 MG CAP PO SCH ×2 (17:23→20:06)
[2023-03-11] MEDS: FLUTICASONE/VILANTEROL 100/25MCG 14 PUFFS/INHALER INH SCH (17:24)
[2023-03-11] MEDS: ENOXAPARIN INJ 40 MG/0.4 ML SYR SQ SCH (17:24)
--- NOTE | 2023-03-11 18:42 | XCELERA ---
[id number]
[2023-03-11] MEDS: oxyBUTYnin chloride 5 MG TAB PO SCH (20:06)
[2023-03-11] MEDS ORDERED: DEXAMETHASONE SOD INJ 4 MG/ML VIAL IV SCH (21:00)
[2023-03-11] MEDS ORDERED: dexAMETHasone 6 MG in SYRINGE 0 ML IV SCH (21:00)
--- NOTE | 2023-03-12 00:19 | Electrocardiogram Report ---
Test Reason : Blood Pressure : / mmHG Vent. Rate : 133 BPM Atrial Rate : 133 BPM P-R Int : 140 ms QRS Dur : 072 ms QT Int : 284 ms P-R-T Axes : 077 082 063 degrees QTc Int : 422 ms Sinus tachycardia Possible Left atrial enlargement Borderline ECG No previous ECGs available Confirmed by Colten Buchanan ([id number]) on 03/12/2023 12:18:51 AM Referred By: Confirmed By:Colten Buchanan
--- NOTE | 2023-03-12 00:21 | Electrocardiogram Report ---
Test Reason : Blood Pressure : / mmHG Vent. Rate : 134 BPM Atrial Rate : 134 BPM P-R Int : 138 ms QRS Dur : 074 ms QT Int : 284 ms P-R-T Axes : 073 079 060 degrees QTc Int : 424 ms Sinus tachycardia Possible Left atrial enlargement Borderline ECG When compared with ECG of 11-MAR-2023 07:42, Sinus rhythm has replaced Supraventricular tachycardia Confirmed by Colten Buchanan ([id number]) on 03/12/2023 12:21:08 AM Referred By: REFERRED SELF Confirmed By:Colten Buchanan
--- NOTE | 2023-03-12 00:21 | Electrocardiogram Report ---
Test Reason : Blood Pressure : / mmHG Vent. Rate : 183 BPM Atrial Rate : 000 BPM P-R Int : 000 ms QRS Dur : 124 ms QT Int : 244 ms P-R-T Axes : 000 074 044 degrees QTc Int : 425 ms Supraventricular tachycardia Possible Septal infarct , age undetermined ST depression, consider subendocardial injury Abnormal ECG When compared with ECG of 11-MAR-2023 07:14, Supraventricular tachycardia has replaced Sinus rhythm ST now depressed in Anterior leads Confirmed by Colten Buchanan ([id number]) on 03/12/2023 12:20:55 AM Referred By: REFERRED SELF Confirmed By:Colten Buchanan
[2023-03-12] MEDS: LACTATED RINGER'S 1,000 ML IV SCH (04:19)
[2023-03-12] MEDS: IPRATROPIUM BROMIDE NEB SOLN 0.02% 0.5MG/2.5ML VIAL NEB SCH ×4 (07:26→19:39)
[2023-03-12 07:27] LABS: Basophils # (auto) 0.04 K/uL (0.00-0.20); Basophils % (auto) 0.3 %; Hematocrit (blood only) 40.4 % (37.0-47.0); Hemoglobin 12.5 g/dl (12.0-16.0); Immature Granulocytes % (auto) 2.1 %; Lymphocytes # (auto) 1.23 K/uL (1.20-3.40); Lymphocytes % (auto) 8.5 %; Mean Corpuscular Hemoglobin 29.5 pg (25.0-34.0); Mean Corpuscular Hgb Conc 30.9 g/dL (32.0-36.0); Mean Corpuscular Volume 95.3 fL (80.0-100.0); Mean Platelet Volume 10.2 fL (9.4-12.4); Monocytes # (auto) 0.53 K/uL (0.11-0.59); Monocytes % (auto) 3.7 %; Neutrophils # (auto) 12.39 K/uL (1.40-6.50); Neutrophils % (auto) 85.4 %; Platelet Count 306 K/uL (130-400); RDW Coefficient of Variation 12.9 % (11.5-14.5); RDW Standard Deviation 45.3 fL (36.4-46.3); Red Blood Count 4.24 M/uL (4.20-5.40); White Blood Count 14.49 K/ul (4.8-10.8)
[2023-03-12 07:47] LABS: BUN Creatinine Ratio 22.2 (10-20); C Reactive Protein 15.69 mg/dl (0-0.5); Est GFR (African American) 97.7 ml/min; Est GFR (Non-African American) 84.3 ml/min
[2023-03-12 08:30] LABS: A calco-baum cmplx NotReported Not Detected (NotDetected); Bact fragilis Not Reported Not Detected (NotDetected); Blood Culture Id Panel See PCR Comment (NotDetected); C auris Not Reported Not Detected (NotDetected); Calbicans Not Reported Not Detected (NotDetected); Candida glabrata Not Reported Not Detected (NotDetected); Candida krusei Not Reported Not Detected (NotDetected); Cneoformans/gatti Not Reported Not Detected (NotDetected); Cparapsilosis Not Reported Not Detected (NotDetected); E cloacae compx Not Reported Not Detected (NotDetected); Efaecalis Not Reported Not Detected (NotDetected); Efaecium Not Reported Not Detected (NotDetected); Enterobacterales Not Reported Not Detected (NotDetected); Escherichia coli Not Reported Not Detected (NotDetected); H influenzae Not Reported Not Detected (NotDetected); K aerogenes Not Reported Not Detected (NotDetected); Koxytoca Not Reported Not Detected (NotDetected); Kpneumoniae grp Not Reported Not Detected (NotDetected); Lmonocyt Not Reported Not Detected (NotDetected); N meningitidis Not Reported Not Detected (NotDetected); P aeruginosa Not Reported Not Detected (NotDetected); Proteus spp Not Reported Not Detected (NotDetected); Salmonella spp Not Reported Not Detected (NotDetected); Smarcescens Not Reported Not Detected (NotDetected); Staph lugdunensis Not Reported Not Detected (NotDetected); Staph spp. Not Reported DETECTED (NotDetected); Staphaureus Not Reported Not Detected (NotDetected); Staphepi Not Reported Not Detected (NotDetected); Stenmaltophilia Not Reported Not Detected (NotDetected); Strep agal(GrpB) Not Reported Not Detected (NotDetected); Strep pneum Not Reported Not Detected (NotDetected); Strep pyog (GrpA) Not Reported Not Detected (NotDetected); Strep spp Not Reported Not Detected (NotDetected)
[2023-03-12] MEDS ORDERED: NON-FORMULARY MEDICATION (Esomeprazole Magnesium 40 mg capsule,delayed release(DR/EC)) PO SCH (09:00)
[2023-03-12] MEDS ORDERED: METOPROLOL SUCC 50MG EXT REL TAB PO SCH (09:00)
[2023-03-12 09:08] LABS: Staphylococcus spp. DETECTED (NotDetected)
[2023-03-12] MEDS ORDERED: VANCOMYCIN CONSULT ACTIVE PRN (09:16)
[2023-03-12] MEDS ORDERED: VANCOMYCIN HCL 1,250 MG in SODIUM CHLORIDE 0.9% 500 ML IV SCH (09:30)
[2023-03-12] MEDS ORDERED: VANCOMYCIN HCL 1,750 MG in SODIUM CHLORIDE 0.9% 500 ML IV STA (09:32)
[2023-03-12] MEDS: UMECLIDINIUM BROMIDE 62.5MCG/BLISTER 7 PUFFS/INHALER INH SCH (10:59)
[2023-03-12] MEDS: FLUTICASONE/VILANTEROL 100/25MCG 14 PUFFS/INHALER INH SCH (10:59)
[2023-03-12] MEDS: methylPREDNISolone 40 MG in SYRINGE 0 ML IV SCH ×2 (11:00→17:08)
[2023-03-12] MEDS: oxyBUTYnin chloride 5 MG TAB PO SCH ×2 (11:00→19:58)
[2023-03-12] MEDS: FUROSEMIDE 40 MG/4 ML VIAL IV SCH ×2 (11:00→17:15)
[2023-03-12] MEDS: busPIRone 15 MG TAB PO SCH ×3 (11:00→19:58)
[2023-03-12] MEDS: DULoxetine HCL 60 MG CAP PO SCH (11:00)
[2023-03-12] MEDS: buPROPion XL 300 MG TABCR PO SCH (11:01)
[2023-03-12] MEDS: rOPINIRole HCL 1 MG TABLET PO SCH (11:01)
[2023-03-12] MEDS: GABAPENTIN 400 MG CAP PO SCH ×3 (11:01→19:58)
[2023-03-12] MEDS: PANTOprazole 40 MG TAB PO SCH (11:01)
[2023-03-12] MEDS: LITHIUM CARBONATE 300 MG TAB PO SCH (11:01)
--- NOTE | 2023-03-12 11:39 | Pharmacy Report ---
Pharmacy PK ABX Note - Date of Service March 12, 2023 - Assessment and Plan Assessment 73 year old F receiving vancomycin for treatment of possible bacteremia. Blood cultures (+) 2/4 [facility]CC. Blood biofire (+) Staph spp (not S. aureus, epidermidis, lugdunensis) which could represent contamination. Day #1 of antimicrobial therapy. Plan Vancomycin * Loading dose: 1750 mg IV x 1 * Maintenance dose: 1500 mg IV every 24 hours * Regimen is predicted to achieve target AUC/RM of 400-600 mg/L.hr * Random level if therapy continues beyond 48h Pharmacy will continue to follow and will adjust dose/frequency as necessary. Thank you. Pharmacy has transitioned to AUC monitoring for vancomycin. AUC/RM is the preferred PK/PD target and is associated with decreased risk of nephrotoxicity compared to traditional trough targets.
[2023-03-12] MEDS: AZITHROMYCIN 250 MG in DEXTROSE 5% 250 ML IV SCH (11:57)
--- NOTE | 2023-03-12 13:03 | Cardiology Consultation ---
Date of Consultation March 12, 2023 Assessment & Plan (1) COPD exacerbation: (2) PSVT (paroxysmal supraventricular tachycardia): (3) COVID-19: Plan 73-year-old woman with longstanding COPD and remote history of tachypalpitations managed with beta-roberta who developed paroxysmal supraventricular tachycardia after admission for respiratory distress/COVID-positive/gram-positive bacteremia. Troponin minimally elevated and flat and no anginal symptoms/ischemic ECG changes/wall motion abnormalities, therefore doubt acute coronary syndrome/ongoing myocardial ischemia. Episode of tachycardia was self-limited and lasted only about 10 minutes, with brief recurrences for less than a minute or so. Hemodynamics and clinical status have improved overnight. Would recommend change beta-roberta from long-acting to short acting for more dosing flexibility (given low normal BP) and then increase dose. Would change from metoprolol succinate 50 mg daily to metoprolol tartrate 25 mg every 8 hours. Will need to monitor for low BP, particularly since she is receiving IV furosemide (presumably to counteract positive fluid balance, no obvious CHF at this point). Upon discharge, could continue higher dose of beta-roberta (perhaps metoprolol succinate 50 mg every morning/25 mg every afternoon), if BP remains low would not resume her low-dose hydrochlorothiazide upon discharge. Will continue to follow along. History of Present Illness Reason for Consultation: SVT Requesting Physician: Timoteo Canela MD Attending Physician: Timoteo Canela MD History of Present Illness 73-year-old woman with no known cardiac history but longstanding COPD was admitted 03/11/2023 with COPD exacerbation/COVID-positive/gram-positive bacteremia, who developed paroxysmal supraventricular tachycardia transiently yesterday. She has a long standing history of tachypalpitations occurring years ago, at some point she was placed on metoprolol and she notes that she had not had any recurrent symptoms for years. When they had been occurring, she was since an extremely rapid heart rate which would last for 15 minutes to several hours. Aside from a pounding sensation, she denied any angina, but she would note marked fatigue and exercise intolerance while experiencing the tachydysrhythmia. No lightheadedness, presyncope, or syncope. No orthopnea, PND, or ankle edema. Telemetry notable for transient PSVT yesterday, sinus rhythm today. Troponin mildly elevated but flat. Echocardiogram generally unremarkable, mild pulmonary hypertension. At the time of my evaluation, the patient was comfortable at rest in bed. Allergies Allergy/AdvReac Type Severity Reaction Status Date / Time Penicillins Allergy Unknown was always Verified 03/11/23 17:59 told not to take it acetaminophen [From Vicodin] AdvReac Intermediate severe Verified 03/11/23 17:59 stomach pains hydrocodone [From Vicodin] AdvReac Intermediate severe Verified 03/11/23 17:59 stomach pains ptd Allergy Mild Rash Uncoded 03/11/23 09:23 Home Medications Medication Instructions Recorded Confirmed Type bupropion HCl 300 mg 24 hr tablet, 300 mg PO DAILY 03/11/23 03/11/23 History extended release buspirone 15 mg tablet 15 mg PO TID 03/11/23 03/11/23 History duloxetine 60 mg capsule,delayed 60 mg PO DAILY 03/11/23 03/11/23 History release esomeprazole magnesium 40 mg 40 mg PO DAILY 03/11/23 03/11/23 History capsule,delayed release gabapentin 400 mg capsule 400 mg PO TID 03/11/23 03/11/23 History hydrochlorothiazide 12.5 mg capsule 12.5 mg PO DAILY 03/11/23 03/11/23 History lithium carbonate 300 mg capsule 300 mg PO DAILY 03/11/23 03/11/23 History meloxicam 15 mg tablet 15 mg PO DAILY 03/11/23 03/11/23 History metoprolol succinate 50 mg 50 mg PO DAILY 03/11/23 03/11/23 History tablet,extended release 24 hr oxybutynin chloride 5 mg tablet 5 mg PO BID 03/11/23 03/11/23 History pantoprazole 40 mg tablet,delayed 40 mg PO DAILY 03/11/23 03/11/23 History release ropinirole 1 mg tablet 1 mg PO DAILY 03/11/23 03/11/23 History umeclidinium 62.5 mcg/actuation See Rx Instructions .Route .COMPLEX 03/11/23 03/11/23 History blister powder for inhalation (Incruse Ellipta) Patient History Surgical History History of thumb surgery H/O wrist surgery History of hysterectomy Hx of appendectomy Family History Mother Cancer Father Cancer Sister Cancer Brother Cancer Social History Smoking Status: Former smoker Hx Alcohol Use: Yes Alcohol type: beer Hx Substance Use: No Preferred Language: Indonesian Communication Ability: Effective Oracle Identity Management Consultant Required: No marital status: / Current Living Situation: Other Current Living Situation Comment: [facility] current occupational status: disabled Feels Safe at Home: Yes Assistive Devices: Cane Physical Exam Physical Exam: No distress. Afebrile. Normotensive (BP 106/60 mmHg). Pulse 68 bpm and regular. Skin: no ecchymoses or generalized lesions. HEENT: unremarkable. Neck: JVP at the clavicle at 90 degrees, no carotid bruits. Lungs: Diffuse inspiratory and expiratory wheezing, no abdominal paradox or obvious accessory muscle use. Cardiac: regular rhythm, normal S1-2, no murmur. Abdomen: benign. Extremities: no edema, pulses intact. Neurologic: normal affect and conversation, nonfocal. Results & Data Vital Signs (Past 12 Hours) Vital Signs Temp Pulse Resp BP Pulse Ox O2 Del Method O2 Flow Rate 03/12/23 11:10 68 16 99 Nasal Cannula 2 03/12/23 07:39 97.9 F 60 21 106/60 94 Nasal Cannula 03/12/23 07:26 74 18 93 Nasal Cannula 2 03/12/23 03:00 97.7 F 63 16 113/63 95 Nasal Cannula 2 Laboratory Results Troponin values 46, 49, 40. Normal electrolytes, BUN 16, creatinine 0.72. Diagnostic Findings Initial ECG showed sinus tachycardia 133 bpm and was unremarkable. ECG yesterday morning at 7:42 AM showed supraventricular tachycardia 183 bpm (retrograde P wave in V1 suggest junctional reentrant tachycardia). ECG just 7 minutes later showed sinus tachycardia at 134 bpm. ECG today showed sinus rhythm at 70 bpm. Chest x-ray showed mild interstitial thickening at the lung bases, otherwise unremarkable. Echocardiogram showed EF 6065% with mild LVH no wall motion abnormalities or significant valvular disease. Mild pulmonary hypertension. PG Care Time/CCT Total # of Minutes Spent Total Time Spent with Patient: Total time spent is greater than 50% in coordination of care (as documented) at patient's floor/unit and/or counseling patient: Coding Level of Care Code 84149 INT INP/OBS CARE Diagnoses COPD exacerbation J44.1 PSVT (paroxysmal supraventricular tachycardia) I47.10 COVID-19 U07.1
[2023-03-12] MEDS: ENOXAPARIN INJ 40 MG/0.4 ML SYR SQ SCH (13:40)
--- NOTE | 2023-03-12 13:43 | Electrocardiogram Report ---
Test Reason : Blood Pressure : / mmHG Vent. Rate : 070 BPM Atrial Rate : 070 BPM P-R Int : 146 ms QRS Dur : 086 ms QT Int : 380 ms P-R-T Axes : 057 056 051 degrees QTc Int : 410 ms Normal sinus rhythm Normal ECG When compared with ECG of 11-MAR-2023 07:49, Vent. rate has decreased BY 64 BPM Confirmed by Andrew Lee ([id number]) on 03/12/2023 1:42:48 PM Referred By: REFERRED SELF Confirmed By:Andrew Lee
[2023-03-12] MEDS: METOPROLOL TARTRATE 25 MG TAB PO SCH ×2 (16:22→23:01)
--- NOTE | 2023-03-12 17:09 | Hospitalist Progress Note ---
Date of Service March 12, 2023 Assessment & Plan (1) COPD exacerbation: Plan: Continue parenteral steroid therapy. Decadron switched to Solu-Medrol. Treat underlying pulmonary vascular congestion. Nebulizer treatments. (2) Tachycardia: Plan: Appears to be PSVT. Cardiology consultation appreciated. Metoprolol succinate switched to metoprolol tartrate. Will treat underlying pulmonary vascular congestion. Cardiac echo report pending (3) COVID-19: Plan: Nasal swab positivity on admission. Supportive care. (4) Elevated troponin: Plan: Appears to be rate related supply/demand mismatch. No evidence of acute coronary syndrome (5) Hypertension: Plan: Stable. Continue current medical management (6) Positive blood cultures: Plan: Blood culture from March 11 positive for gram-positive cocci in clusters. Hopefully this is simply a contaminant. Will await further identification. In the meantime, vancomycin has been ordered IV, day 1. Plan To be determined Admission and Anticipated Discharge Date Admission Date: March 11, 2023 Subjective Alert and oriented. No acute distress. Chest x-ray done March 11 reveals pulmonary vascular congestion. She is now on intravenous Lasix. She tested positive for COVID by nasal swab on admission but minimal symptoms except for COPD exacerbation. Blood culture obtained March 11 positive for gram-positive cocci in clusters. Hopefully this is a contaminant. Nevertheless, vancomycin has been added until we are sure that is only contaminant. Cardiology consultation appreciated. Metoprolol succinate switched to metoprolol tartrate. She is now on parenteral Lasix diuresis and IV fluids have been discontinued. Decadron has been switched to Solu-Medrol. Review of Systems 2 Review of Systems: Constitutional-no fever or chills ENT-no blurred vision, no double vision, no epistaxis, no sore throat Respiratory-no cough, no wheezing, no shortness of breath at rest. She does have dyspnea on exertion. Cardiac-no palpitations, no chest pain, no syncope GI-no nausea, vomiting, diarrhea, melena, hematochezia -no urinary retention, no urinary incontinence, no dysuria, no hematuria Musculoskeletal-no joint pain, no muscle tenderness Skin-no bruising, no rashes, no pruritus Neuro-no isolated weakness, no paresthesia, no weakness Psych-no depression, no anxiety Physical Exam 2 Physical Exam: General-alert and oriented x3, no fevers, no chills HEENT-head atraumatic and normocephalic, pupils equal and reactive to light, extraocular muscles intact Neck-no lymphadenopathy or thyromegaly, trachea midline Chest-bilateral expiratory wheezes. Faint bibasilar inspiratory rales. No rhonchi Cardiac-regular rate and rhythm, normal S1 and S2 Abdomen-normal bowel sounds, nontender, no hepatosplenomegaly Extremities-no cyanosis, clubbing, or edema Neuro-cranial nerves II through XII intact, motor and sensory function within normal limits, strength symmetrical, no focal deficits Psych-normal affect, normal mood Results & Data Results & Data Vital Signs (Past 12 Hours) Vital Signs Temp Pulse Pulse Resp BP BP Pulse Ox 03/12/23 16:20 36.2 C L 78 21 111/62 97 03/12/23 15:34 79 18 97 03/12/23 11:10 68 16 99 03/12/23 08:00 03/12/23 08:00 108 H 03/12/23 07:39 36.6 C 60 21 106/60 94 03/12/23 07:26 74 18 93 O2 Del Method O2 Flow Rate 03/12/23 16:20 Nasal Cannula 2 03/12/23 15:34 Nasal Cannula 2 03/12/23 11:10 Nasal Cannula 2 03/12/23 08:00 Nasal Cannula 2 03/12/23 08:00 03/12/23 07:39 Nasal Cannula 03/12/23 07:26 Nasal Cannula 2 Laboratory Results 03/12/23 06:39 03/12/23 06:39 PG Care Time/CCT Total # of Minutes Spent Total Time Spent with Patient: Total time spent is greater than 50% in coordination of care (as documented) at patient's floor/unit and/or counseling patient: Coding Level of Care Code 06040 SUB INP/OBS CARE 3/50MIN Diagnoses COPD exacerbation J44.1 Tachycardia R00.0 COVID-19 U07.1 Elevated troponin R79.89 Hypertension I10 Positive blood cultures R78.81
[2023-03-12] MEDS ORDERED: VANCOMYCIN HCL 1,500 MG in SODIUM CHLORIDE 0.9% 500 ML IV SCH (22:00)
[2023-03-13] MEDS ORDERED: guaiFENesin/DEXTROM SYRUP 200MG/20MG 10ML UDC PO PRN (00:21)
[2023-03-13] MEDS ORDERED: COUGH DROP (SUGAR FREE) LOZ 24 LOZ/1 BOX BUCCAL PRN (00:22)
[2023-03-13] MEDS: methylPREDNISolone 40 MG in SYRINGE 0 ML IV SCH ×3 (01:14→17:37)
[2023-03-13] MEDS: METOPROLOL TARTRATE 25 MG TAB PO SCH ×3 (06:20→21:27)
[2023-03-13] MEDS: IPRATROPIUM BROMIDE NEB SOLN 0.02% 0.5MG/2.5ML VIAL NEB SCH ×4 (07:23→19:47)
[2023-03-13] MEDS: AZITHROMYCIN 250 MG in DEXTROSE 5% 250 ML IV SCH (08:37)
[2023-03-13] MEDS: FUROSEMIDE 40 MG/4 ML VIAL IV SCH (08:37)
[2023-03-13] MEDS: buPROPion XL 300 MG TABCR PO SCH (08:38)
[2023-03-13] MEDS: DULoxetine HCL 60 MG CAP PO SCH (08:38)
[2023-03-13] MEDS: busPIRone 15 MG TAB PO SCH ×3 (08:38→21:27)
[2023-03-13] MEDS: PANTOprazole 40 MG TAB PO SCH (08:38)
[2023-03-13] MEDS: GABAPENTIN 400 MG CAP PO SCH ×3 (08:38→21:27)
[2023-03-13] MEDS: rOPINIRole HCL 1 MG TABLET PO SCH (08:38)
[2023-03-13] MEDS: LITHIUM CARBONATE 300 MG TAB PO SCH (08:38)
[2023-03-13] MEDS: FLUTICASONE/VILANTEROL 100/25MCG 14 PUFFS/INHALER INH SCH (08:39)
[2023-03-13] MEDS: oxyBUTYnin chloride 5 MG TAB PO SCH ×2 (08:39→21:28)
[2023-03-13] MEDS: UMECLIDINIUM BROMIDE 62.5MCG/BLISTER 7 PUFFS/INHALER INH SCH (08:39)
[2023-03-13 08:42] LABS: Creatinine Clr Calc Pharmacy 69.8 ml/min; Est GFR (African American) 99.3 ml/min; Est GFR (Non-African American) 85.7 ml/min
--- NOTE | 2023-03-13 11:00 | XRay Report ---
SINGLE VIEW CHEST CLINICAL HISTORY: COPD exacerbation FINDINGS: An AP, portable, upright chest radiograph is compared to study dated 03/11/2023 and correlate d with chest CT dated 02/01/2021. The cardiomediastinal silhouette is top normal for projection. Emph ysema and chronic interstitial thickening is similar to previous. There is mild bibasilar scarring/at electasis. The lungs and pleural spaces are otherwise clear. No pneumothorax is seen. The skeletal st ructures are osteopenic. The bony thorax is grossly intact. IMPRESSION: Emphysematous change with no active disease in the chest. ACT 112: Negative or not required by law. Electronically signed by: Kasi Sarkar M.D. 03/13/2023 10:59 AM
--- NOTE | 2023-03-13 12:25 | Cardiology Progress Note ---
Date of Service March 13, 2023 Assessment & Plan (1) COPD exacerbation: (2) PSVT (paroxysmal supraventricular tachycardia): (3) COVID-19: Plan 73-year-old woman with longstanding COPD and remote history of tachypalpitations managed with beta-roberta who developed paroxysmal supraventricular tachycardia 03/11/23 after admission for respiratory distress/COVID-positive/gram-positive bacteremia. No recurrence of PSVT overnight. Continue metoprolol tartrate 25 mg every 8 hours while inpatient, upon discharge continue higher dose of beta-roberta than her preadmission dose (discharge on metoprolol succinate 50 mg q AM/25 mg q PM). If BP remains low or normal would not resume her low-dose hydrochlorothiazide upon discharge. If she does have recurrent tachydysrhythmias post discharge which are refractory to medical management, could be considered for future ablation. Will sign off, please contact if change in clinical status. Upon discharge, please arrange for follow-up with one of the electrophysiology physicians (Dr. Yanez or Dr. Huerta) to discuss potential future ablation. Admission and Anticipated Discharge Date Admission Date: March 11, 2023 Subjective Uneventful night. Patient continues to improve clinically. No further recurrence of PSVT. No chest pain, dyspnea at rest, or subjective palpitations. Telemetry showed sinus rhythm in the 70 bpm range with sporadic PVCs Physical Exam Physical Exam: No distress. Afebrile. Normotensive. Pulse 75 bpm and regular. Skin: no ecchymoses or generalized lesions. Limited exam due to COVID. Neurologic: normal affect and conversation, nonfocal. Results & Data Laboratory Results Normal electrolytes, BUN 16, creatinine 0.71. Diagnostic Findings Chest x-ray today showed emphysematous change with no active disease in the chest PG Care Time/CCT Total # of Minutes Spent Total Time Spent with Patient: Total time spent is greater than 50% in coordination of care (as documented) at patient's floor/unit and/or counseling patient: Coding Level of Care Code 15086 SUB INP/OBS CARE 2/35MIN Diagnoses COPD exacerbation J44.1 PSVT (paroxysmal supraventricular tachycardia) I47.10 COVID-19 U07.1
[2023-03-13] MEDS: ENOXAPARIN INJ 40 MG/0.4 ML SYR SQ SCH (13:26)
--- NOTE | 2023-03-13 15:09 | Hospitalist Progress Note ---
Date of Service March 13, 2023 Assessment & Plan (1) COPD exacerbation: Plan: Improving with parenteral steroid therapy. Decadron has been switched to Solu- Medrol. Treat underlying CHF. Nebulizer treatments. (2) Tachycardia: Plan: Appeared to be PSVT. Cardiology consultation appreciated. Metoprolol succinate has been switched to metoprolol tartrate. Now controlled. Continue to treat CHF. Cardiac echo reveals moderate left ventricular hypertrophy with normal ejection fraction (3) COVID-19: Plan: Nasal swab positivity on admission. Supportive care. (4) Elevated troponin: Plan: Appears to be rate related supply/demand mismatch. No evidence of acute coronary syndrome (5) Hypertension: Plan: Stable. Continue current medical management (6) Positive blood cultures: Plan: Appears to be contaminant. Vancomycin discontinued. Plan To be determined . Await OT and PT assessments. Hopefully she can be discharged to home in the next day or 2. Admission and Anticipated Discharge Date Admission Date: March 11, 2023 Subjective Alert and oriented. Pleasant. She is feeling better. Chest x-ray done today, March 13, looks better. Lasix down to titrated to once daily dosing. Heart rate is controlled with metoprolol tartrate. Cardiac echo reveals moderate left ventricular hypertrophy with normal ejection fraction. She remains on oxygen at 2 L/min. Hopefully this can be weaned off prior to discharge. If not, she will go home on low-flow oxygen for a while. 1 set of blood cultures obtained March 11 is growing staph epidermis which represents contamination. Vancomycin discontinued. She remains on parenteral steroid therapy. OT and PT assessments have been requested. Review of Systems 2 Review of Systems: Constitutional-no fever or chills ENT-no blurred vision, no double vision, no epistaxis, no sore throat Respiratory-no cough, no wheezing, no shortness of breath at rest. She does have dyspnea on exertion. Cardiac-no palpitations, no chest pain, no syncope GI-no nausea, vomiting, diarrhea, melena, hematochezia -no urinary retention, no urinary incontinence, no dysuria, no hematuria Musculoskeletal-no joint pain, no muscle tenderness Skin-no bruising, no rashes, no pruritus Neuro-no isolated weakness, no paresthesia, no weakness Psych-no depression, no anxiety Physical Exam 2 Physical Exam: General-alert and oriented x3, no fevers, no chills HEENT-head atraumatic and normocephalic, pupils equal and reactive to light, extraocular muscles intact Neck-no lymphadenopathy or thyromegaly, trachea midline Chest-bilateral expiratory wheezes. Faint bibasilar inspiratory rales. No rhonchi Cardiac-regular rate and rhythm, normal S1 and S2 Abdomen-normal bowel sounds, nontender, no hepatosplenomegaly Extremities-no cyanosis, clubbing, or edema Neuro-cranial nerves II through XII intact, motor and sensory function within normal limits, strength symmetrical, no focal deficits Psych-normal affect, normal mood Results & Data Results & Data Vital Signs (Past 12 Hours) Vital Signs Temp Pulse Pulse Resp BP Pulse Ox O2 Del Method 03/13/23 14:48 78 18 92 Nasal Cannula 03/13/23 12:00 36.7 C 75 18 121/90 95 Nasal Cannula 03/13/23 10:21 72 18 93 Nasal Cannula 03/13/23 08:00 Nasal Cannula 03/13/23 07:59 36.7 C 63 19 125/69 95 Nasal Cannula 03/13/23 07:42 57 L 03/13/23 07:23 74 18 94 Nasal Cannula 03/13/23 04:25 36.8 C 66 18 133/76 95 Nasal Cannula O2 Flow Rate 03/13/23 14:48 2 03/13/23 12:00 2.0 03/13/23 10:21 2 03/13/23 08:00 2 03/13/23 07:59 2.0 03/13/23 07:42 03/13/23 07:23 2 03/13/23 04:25 Laboratory Results 03/12/23 06:39 03/13/23 08:04 PG Care Time/CCT Total # of Minutes Spent Total Time Spent with Patient: Total time spent is greater than 50% in coordination of care (as documented) at patient's floor/unit and/or counseling patient: Coding Level of Care Code 08277 SUB INP/OBS CARE 3/50MIN Diagnoses COPD exacerbation J44.1 Tachycardia R00.0 COVID-19 U07.1 Elevated troponin R79.89 Hypertension I10 Positive blood cultures R78.81
[2023-03-14] MEDS: methylPREDNISolone 40 MG in SYRINGE 0 ML IV SCH ×2 (01:48→08:10)
[2023-03-14] MEDS: METOPROLOL TARTRATE 25 MG TAB PO SCH ×2 (06:17→13:40)
[2023-03-14 06:25] LABS: Basophils # (auto) 0.03 K/uL (0.00-0.20); Basophils % (auto) 0.2 %; Hematocrit (blood only) 38.1 % (37.0-47.0); Hemoglobin 11.9 g/dl (12.0-16.0); Immature Granulocytes # (auto) 0.31 K/uL (0.01-0.20); Immature Granulocytes % (auto) 2.4 %; Lymphocytes # (auto) 0.76 K/uL (1.20-3.40); Mean Corpuscular Hemoglobin 29.6 pg (25.0-34.0); Mean Corpuscular Hgb Conc 31.2 g/dL (32.0-36.0); Mean Corpuscular Volume 94.8 fL (80.0-100.0); Mean Platelet Volume 10.1 fL (9.4-12.4); Monocytes # (auto) 0.51 K/uL (0.11-0.59); Neutrophils # (auto) 11.12 K/uL (1.40-6.50); Neutrophils % (auto) 87.4 %; Platelet Count 320 K/uL (130-400); RDW Coefficient of Variation 12.3 % (11.5-14.5); Red Blood Count 4.02 M/uL (4.20-5.40); White Blood Count 12.73 K/ul (4.8-10.8)
[2023-03-14 06:53] LABS: BUN Creatinine Ratio 27.8 (10-20); Calcium 9.1 mg/dl (8.6-10.3); Creatinine Clr Calc Pharmacy 68.8 ml/min; Est GFR (African American) 97.7 ml/min; Est GFR (Non-African American) 84.3 ml/min; Potassium 4.8 mmol/L (3.5-5.1)
[2023-03-14] MEDS: IPRATROPIUM BROMIDE NEB SOLN 0.02% 0.5MG/2.5ML VIAL NEB SCH ×3 (07:21→15:11)
[2023-03-14] MEDS: FLUTICASONE/VILANTEROL 100/25MCG 14 PUFFS/INHALER INH SCH (08:10)
[2023-03-14] MEDS: DULoxetine HCL 60 MG CAP PO SCH (08:10)
[2023-03-14] MEDS: AZITHROMYCIN 250 MG in DEXTROSE 5% 250 ML IV SCH (08:10)
[2023-03-14] MEDS: buPROPion XL 300 MG TABCR PO SCH (08:10)
[2023-03-14] MEDS: busPIRone 15 MG TAB PO SCH ×2 (08:10→13:38)
[2023-03-14] MEDS: UMECLIDINIUM BROMIDE 62.5MCG/BLISTER 7 PUFFS/INHALER INH SCH (08:10)
[2023-03-14] MEDS: PANTOprazole 40 MG TAB PO SCH (08:11)
[2023-03-14] MEDS: rOPINIRole HCL 1 MG TABLET PO SCH (08:11)
[2023-03-14] MEDS: GABAPENTIN 400 MG CAP PO SCH ×2 (08:11→13:40)
[2023-03-14] MEDS: LITHIUM CARBONATE 300 MG TAB PO SCH (08:11)
[2023-03-14] MEDS: oxyBUTYnin chloride 5 MG TAB PO SCH (08:11)
[2023-03-14] MEDS ORDERED: FUROSEMIDE 40 MG/4 ML VIAL IV SCH (09:00)
[2023-03-14] MEDS: ENOXAPARIN INJ 40 MG/0.4 ML SYR SQ SCH (13:38)
--- NOTE | 2023-03-14 13:43 | Discharge Summary ---
Date of Service March 14, 2023 Admission HPI Per Admitting Provider patient is a very pleasant 73-year-old female who notes that she first got sick about 2 weeks ago. At that time it sounds like she had fevers felt flushed, generally felt unwell and felt short of breathfelt like she was starting to have a COPD exacerbation from a viral infection. This kept going 4 days, it sounds like she just was not really quite sick enough to feel that she needed to come to the hospital but was definitely not well, had just moved back to the area and had not yet reestablished with her PCP, and mostly seem to be trying to ride it out. She did have some shaking chills from day-to-day but has not had any since maybe a day or so. In that respect, she feels like while the breathing is still bad the constitutional symptoms of infection seem to be improving. Cough with yellowish mucus that is new/different for her over that time period as well. What really got her attention to bring her to the hospital was partly because her presumed COPD exacerbation was not getting better, but al so because in the last day or so she started to really feel heart racing symptoms. She maybe felt like her heart was going a little bit fast from time to time while she was sick, but she is now had some episodes of really pounding where she feels it in her neck extremely hard. On revisit several hours after initial admission, she had not had any further heart racing/pounding episodes, her breathing still felt bad, but she felt more stable than before. Principal Diagnosis Acute exacerbation COPD, acute hypoxic respiratory failure, pulmonary vascular congestion, transient PSVT, COVID positivity by nasal swab Discharge Exam General-alert and oriented x3, no fevers, no chills HEENT-head atraumatic and normocephalic, pupils equal and reactive to light, extraocular muscles intact Neck-no lymphadenopathy or thyromegaly, trachea midline Chest-bilateral expiratory wheezes. Faint bibasilar inspiratory rales. No rhonchi Cardiac-regular rate and rhythm, normal S1 and S2 Abdomen-normal bowel sounds, nontender, no hepatosplenomegaly Extremities-no cyanosis, clubbing, or edema Neuro-cranial nerves II through XII intact, motor and sensory function within normal limits, strength symmetrical, no focal deficits Psych-normal affect, normal mood Discharge Data Allergies Allergy/AdvReac Type Severity Reaction Status Date / Time Penicillins Allergy Unknown was always Verified 03/11/23 17:59 told not to take it hydrocodone [From Vicodin] AdvReac Intermediate severe Verified 03/11/23 17:59 stomach pains Consultations 03/11/23 09:07 ED Decision to Admit Stat 03/11/23 12:58 Consult Cardiology Routine Hospital Course (1) COPD exacerbation: Much improved with parenteral steroid therapy. Decadron has been switched to Solu-Medrol. Treat underlying CHF. Nebulizer treatments. She will be discharged on a prednisone tapering dose (2) Tachycardia: Appeared to be PSVT. Cardiology consultation appreciated. Metoprolol succinate has been switched to metoprolol tartrate. Now controlled. Continue to treat CHF. Cardiac echo reveals moderate left ventricular hypertrophy with normal ejection fraction . Will switch back to metoprolol succinate at discharge at a higher dose (3) COVID-19: Nasal swab positivity on admission. Supportive care. (4) Elevated troponin: Appears to be rate related supply/demand mismatch. No evidence of acute coronary syndrome (5) Hypertension: Stable. Continue current medical management (6) Positive blood cultures: contaminant. Vancomycin discontinued. Plan Home today, March 14. She will need oxygen at 2 L/min per nasal cannula with ambulation for a while. Hopefully this can be discontinued at a later date. She will remain on oral azithromycin for 5 more days along with a prednisone tapering dose at discharge. Total Time Total Time Spent Total Time Spent (In Minutes): 45 minutes Discharge Plan Discharge Items Patient Disposition: Home - Self-Care Reason For Visit: COPD EXAC, SVT Discharge Diagnosis: Acute exacerbation COPD, pulmonary vascular congestion, acute hypoxic respiratory failure, PSVT, COVID positivity per nasal swab Activity: Resume your previous activity Non-emergency contact: Primary Care Provider Call non-emergency contact if: you have any medication questions and your symptoms worsen Follow-up/Referrals: Adán Melo MD [Primary Care Provider] - Diet: Regular and Heart Healthy Addtl Attending Provider Instructions: Take prednisone in a tapering dose fashion as directed. Take azithromycin daily for 5 more days Pending Studies at Discharge: No Stand-Alone Forms: My Alex and Ani, Smoking Cessation Medications and DC Order Prescriptions: New azithromycin 250 mg Tablet 250 mg PO DAILY Qty: 5 0RF prednisone 10 mg tablet See Rx Instructions .ROUTE .COMPLEX Qty: 12 0RF Rx Instructions: 10 mg orally 3 times a day for 2 days, then 10 mg twice a day for 2 days, then 10 mg once a day for 2 days, then stop Continued ropinirole 1 mg tablet 1 mg PO DAILY meloxicam 15 mg tablet 15 mg PO DAILY gabapentin 400 mg capsule 400 mg PO TID lithium carbonate 300 mg capsule 300 mg PO DAILY pantoprazole 40 mg tablet,delayed release (DR/EC) 40 mg PO DAILY esomeprazole magnesium 40 mg capsule,delayed release(DR/EC) 40 mg PO DAILY hydrochlorothiazide 12.5 mg capsule 12.5 mg PO DAILY oxybutynin chloride 5 mg tablet 5 mg PO BID buspirone 15 mg tablet 15 mg PO TID bupropion HCl 300 mg tablet extended release 24 hr 300 mg PO DAILY duloxetine 60 mg capsule,delayed release(DR/EC) 60 mg PO DAILY Incruse Ellipta 62.5 mcg/actuation blister with device See Rx Instructions .ROUTE .COMPLEX Rx Instructions: as directed Changed metoprolol succinate 50 mg tablet extended release 24 hr 50 mg PO BID Qty: 60 0RF Discharge Orders: Discharge Order (Routine); Ordered 03/14/23 Ordered By: Timoteo Canela Admission Data Admit Date/Time: 03/11/23 10:25 Attending Provider: Timoteo Canela Admit Provider: Sumanth Clayton Primary Care Provider: Adán Melo Other Providers: Sumanth Clayton; Colten Buchanan Coding Level of Care Code 33637 INP/OBS DISCH >30 MIN Diagnoses COPD exacerbation J44.1 Tachycardia R00.0 COVID-19 U07.1 Elevated troponin R79.89 Hypertension I10 Positive blood cultures R78.81
[2023-03-15] MEDS ORDERED: AZITHROMYCIN 250 MG TAB PO SCH (09:00)
--- NOTE | 2023-03-20 16:21 | Coding Query ---
CONGESTIVE HEART FAILURE To Promote full compliance with coding requirements relating to patient care, physician participation is requested in all cases of paver installer uncertainty. Please assist us with the following questions. A diagnosis of Congestive Heart Failure is documented in the patient's medical record. To accurately code this diagnosis and to compare patient severity, we ask that you specify the type of heart failure by placing an X within the parenthesis (x). SYSTOLIC HEART FAILURE ( ) Acute ( ) Chronic ( ) Acute on Chronic ( ) Rheumatic ( ) Unknown DIASTOLIC HEART FAILURE ( ) Acute ( ) Chronic ( ) Acute on Chronic ( ) Rheumatic ( ) Unknown COMBINED SYSTOLIC AND DIASTOLIC HEART FAILURE ( ) Acute ( ) Chronic ( ) Acute on Chronic ( ) Rheumatic ( ) Unknown Was the CHF Present On Admission? Please check the appropriate box: ( ) Present on Admission (x ) Not Present On Admission ( ) Clinically undetermined Thank you for your time, MURALI Li, [facility]
== END 2023-03-14 16:10 | disposition home or self-care (01) | DRG 190 ==
LOC: ED 07:02 → EDINP 10:25 → SUATTDRO 10:25 → 2E 15:23